=== PATIENT | female | born 1955 | race Caucasian/White ===

== ENCOUNTER 2017-06-09 09:44 | Day surgery (SDC) | payer MEDICARE, OTHER ==
[2017-06-06 15:43] VITALS: BMI 24.2
[2017-06-09] MEDS ORDERED: DESFLURANE GAS 240 ML BOTTLE IH ONE (11:38)
[2017-06-09] MEDS ORDERED: MIDAZOLAM HCL 2 MG/2 ML SINGLE DOSE VIAL ONE (11:38)
[2017-06-09] MEDS ORDERED: DEXAMETHASONE SOD PHOSPHATE 4 MG/1 ML VIAL ONE (12:06)
[2017-06-09] MEDS ORDERED: GENTAMICIN SO4 80 MG/2 ML VIAL ONE (12:08)
[2017-06-09] MEDS ORDERED: PROPOFOL 20 ML ONE (12:08)
[2017-06-09] MEDS ORDERED: GENTAMICIN 80MG PREMIX BAG IVPB ONE (12:08)
[2017-06-09] MEDS ORDERED: ceFAZolin SODIUM 1 GM VIAL ONE (12:08)
[2017-06-09] MEDS ORDERED: LIDOCAINE HCL/PF 2% SDV 5ML VIAL ONE (12:08)
[2017-06-09] MEDS ORDERED: ceFAZolin SODIUM 1 GM VIAL IVPB ONE (12:12)
[2017-06-09] MEDS ORDERED: oxyCODONE HCL 5 MG TABLET PO PRN (12:58)
--- NOTE | 2017-06-09 13:01 | OP ---
Operative Note - Note: Operative Date: 06/09/17 Pre-Operative Diagnosis: LPU stone Operation: cysto/laser litho/stent Findings: impacted LPU stone Post-Operative Diagnosis: Same as Pre-op Surgeon: Gilberto Lizama Anesthesiologist/EXECUTIVE DIRECTOR OF NURSING: Fredy iNna Anesthesia: General Specimens Removed: stone frag Estimated Blood Loss (mls): 1 Drains & Tubes with Location: 7fr,24cm stent Operative Report Dictated: Yes
--- NOTE | 2017-06-09 13:36 | OP ---
DATE OF OPERATION: PREOPERATIVE DIAGNOSIS: Obstructing left possible ureteral stone. POSTOPERATIVE DIAGNOSIS: Obstructing left possible ureteral stone. PROCEDURE: Cystoscopy, stent removal, ureteroscopy, laser lithotripsy, stone basketing, and stent placement. SURGEON: Alejandro Newell MD INDICATIONS: The patient is a 62-year-old female with obstructing stone in the left proximal ureter status post stent placement a week ago now taken on for lithotripsy. Risks, benefits, and alternatives discussed. DESCRIPTION OF PROCEDURE: After informed consent was obtained, the patient was taken to the OR and placed supine on the table. She was given a gram of Ancef and 8 of gentamicin. The vagina was prepped and draped in the standard surgical fashion in dorsal lithotomy position. The stent string was grasped and brought out through the meatus and intubated with a guidewire to the renal pelvis and stent removed. A dual-lumen catheter was advanced, and a stent guide was advanced into the kidney. Over the guidewire, a flexible ureteroscope was advanced, and a stone was seen in the proximal ureter approximately 17 mm in size. The stone was pulverized to fine dust in 1- to 2-mm fragments using Holmium laser fiber at a setting of 1.2 and 10 Hz. One of the fragments was then removed with the stone basket and sent to Pathology for analysis. Repeat ureteroscopy revealed no evidence of residual stone fragments. Ureteroscope was then removed and a 7-Cuban 24-cm double pigtail stent was then advanced in a monorail fashion. Fluoroscopy confirmed stent to be in good position. The patient was awoken from anesthesia and transferred to the recovery room in stable condition. There were no complications. Estimated blood loss was minimal. ALEJANDRO NEWELL M.D. [id number]
[2017-06-09] MEDS ORDERED: ONDANSETRON 4 MG/2 ML VIAL IVPUSH PRN (13:41)
[2017-06-09] MEDS ORDERED: LACTATED RINGERS SOLUTION 1,000 ML IV SCH (13:45)
[2017-06-09] MEDS ORDERED: ELECTROLYTE-148 SOLN 1,000 ML IV SCH (13:45)
[2017-06-09] MEDS ORDERED: ACETAMINOPHEN 325 MG TABLET (FP) PO ONE (13:45)
[2017-06-09] MEDS ORDERED: ONDANSETRON 4 MG/2 ML VIAL ONE (13:51)
[2017-06-09 14:20] VITALS: TEMP 97.5
[2017-06-09 16:00] VITALS: BP 108/58; PULSE 60
--- NOTE | 2017-06-10 17:00 | PATH ---
Surgical Pathology Report Patient Name: SURI TAYLOR [facility]. Rec. #: [id number] /Age/Gender: 1955 (Age: 62) / F Account: [id number] Location: [facility] Taken: 06/08/2017 Received: 06/09/2017 Reported: 06/10/2017 Physicians: Gilberto Lizama M.D. Specimen(s) Received URETERAL STONES Clinical History Ureteral stone Final Diagnosis URETERAL STONE, LEFT, LASER LITHOTRIPSY: URETEROLITHIASIS. MACROSCOPIC DIAGNOSIS. Electronically Signed Luann Card M.D. Gross Description Received fresh labeled "ureteral stone left," is a 0.2 cm in greatest dimension chávez-ness, irregular calculus which is sent for chemical analysis. /06/09/201706/09/2017
[2017-06-22 14:17] LABS: CA OXALATE MONOHYDR. 94 % (.); SIZE 2x2x2 mm (.); WEIGHT 6.5 mg (.)
== END 2017-06-09 16:11 | disposition home or self-care (01) ==
LOC: JASU-SURG 09:44
PROVIDERS: ATTEND Urology
PROC: 0TF78ZZ Fragmentation in Left Ureter, Via Natural or Artificial Opening Endoscopic (ICD-10-PCS; principal; 2017-06-09 11:30)
PROC: 0T778DZ Dilation of Left Ureter with Intraluminal Device, Via Natural or Artificial Opening Endoscopic (ICD-10-PCS; 2017-06-09 11:30)
DX: N20.1 Calculus of ureter (principal)
CPT/HCPCS: 36415; 76000-TC-FY; 82360; 88300-TC; 94760